=== PATIENT | male | born 1985 | race African-American/Black ===

== ENCOUNTER 2019-02-01 17:46 | Emergency (ER) | payer SELFPAY ==
[~2019-02-01] VITALS: Ht 172.7 cm; Wt 77.3 kg
[2019-02-01 19:38] LABS: BASOPHILS % (AUTO) 0.2 % (0.0-2.0); EOSINOPHILS % (AUTO) 0 % (1.0-6.0); HEMATOCRIT 46.7 % (41-53); HEMOGLOBIN 15.3 g/dL (13.5-17.5); LYMPHOCYTES % (AUTO) 7.6 % (22.0-44.0); MEAN CORPUSCULAR HEMOGLOBIN 31.5 pg (26.0-34.0); MEAN CORPUSCULAR HGB CONC 32.8 G/dL (31.0-37.0); MEAN CORPUSCULAR VOLUME 96 fL (80-100); MONOCYTES # (AUTO) 0.5 K/uL (0.1-1.0); MONOCYTES % (AUTO) 3.9 % (2.0-9.0); NEUTROPHILS # (AUTO) 11.1 K/uL (1.8-7.7); PLATELET COUNT (AUTO) 266 K/uL (150-450); RED BLOOD CELL COUNT(AUTO) 4.86 MIL/uL (4.50-5.90); RED CELL DISTRIBUTION WIDTH 13.4 % (11.5-14.5)
[2019-02-01 19:57] LABS: ANION GAP 9 mmol/L (8-16); CALCIUM, TOTAL 9.8 mg/dL (8.8-10.5); CARBON DIOXIDE 27 mmol/L (22-29); CHLORIDE 102 mmol/L (98-107); CREATININE 1.21 mg/dL (0.60-1.30); GLOMERULAR FILTR. RATE CALC > 60 mL/min (>60); GLUCOSE,RANDOM 142 mg/dL (70-110); POTASSIUM 4.4 mmol/L (3.5-5.1); SODIUM SERUM 138 mmol/L (136-145); UREA NITROGEN, BLOOD 19 mg/dL (7-18)
[2019-02-01 20:04] LABS: ALANINE AMINOTRANSFERASE 37 U/L (12-78); ALBUMIN 5.1 g/dL (3.4-5.0); ALKALINE PHOSPHATASE 48 U/L (46-116); ASPARTATE AMINOTRANSFERASE 25 U/L (15-37); BILIRUBIN,TOTAL 0.5 mg/dL (0.1-1.0); TOTAL PROTEIN, SERUM 8.5 g/dL (6.4-8.2)
[2019-02-01 20:22] LABS: NEUTROPHILS % (AUTO) 88.3 % (40.0-70.0)
[2019-02-01] MEDS ORDERED: HALOPERIDOL 5 MG TABLET PO PRN (21:45)
[2019-02-01] MEDS ORDERED: LORazepam 2 MG TABLET PO PRN (21:45)
[2019-02-01] MEDS ORDERED: ZOLPIDEM TARTRATE 10 MG TABLET PO PRN (21:45)
[2019-02-02 01:52] VITALS: BP 126/84
== END 2019-02-02 01:58 | disposition short-term general hospital (02) ==
LOC: EMS 17:47
DX: F25.9 Schizoaffective disorder, unspecified (principal); F22 Delusional disorders
CPT/HCPCS: 36415; 80053; 85025; 99285; G0480